=== PATIENT | male | born 1985 | race Caucasian/White ===

== ENCOUNTER 2018-12-24 22:37 | Emergency (ER) | payer SELFPAY ==
--- NOTE | 2018-12-24 23:10 | Emergency Department Record ---
History of Present Illness - General Chief Complaint: Animal Bite Stated Complaint: BAT EXPOSURE Time Seen by Provider: 12/24/18 22:43 Source: Patient Mode of Arrival: Ambulatory Limitations: No limitations - History of Present Illness Initial Comments: The patient is here due to finding a bat in his kitchen and now he is concerned he needs rabies prophylaxis. The patient has no bite ling and is unsure if he was bitten. He denies any other issues. Complaint: Possible animal exposure Onset/Timin -: Hour(s) Animal: Bat Mechanism: None known - Related Data Patient Tetanus UTD (within 5 yrs): No Home Medications Medication Instructions Recorded Confirmed Last Taken No Home Med [NO HOME MEDS] 12/24/18 12/24/18 Unknown Allergies Allergy/AdvReac Type Severity Reaction Status Date / Time sulfamethoxazole Allergy HIVES Verified 12/24/18 22:42 [From ] trimethoprim [From ] Allergy HIVES Verified 12/24/18 22:42 Travel Screening - Travel/Exposure Within Last 30 Days Have you traveled within the last 30 days?: No - Travel/Exposure Within Last Year Have you traveled outside the [place] in the last year?: No - Additonal Travel Details Have you been exposed to anyone with a communicable illness?: No - Travel Symptoms Symptom Screening: None Review of Systems Constitutional: Denies: Chills, Fever Eyes: Denies: Eye discharge ENT: Denies: Congestion Respiratory: Denies: Cough, Dyspnea Past Medical History - SOCIAL HISTORY Smoking Status: Current every day smoker Alcohol Use: Rare Drug Use: None - RESPIRATORY Hx Respiratory Disorders: No - CARDIOVASCULAR Hx Cardio Disorders: No - NEURO Hx Neuro Disorders: No - GI Hx GI Disorders: No - Hx Genitourinary Disorders: No - ENDOCRINE Hx Endocrine Disorders: No - MUSCULOSKELETAL Hx Musculoskeletal Disorders: No - PSYCH Hx Psych Problems: No - HEMATOLOGY/ONCOLOGY Hx Hematology/Oncology Disorders: No Family Medical History Any Significant Family History?: No Physical Exam - General General Appearance: Alert, Oriented x3, Cooperative, No acute distress - Head Head exam: Atraumatic, Normocephalic, Normal inspection - Eye Eye exam: Normal appearance, PERRL - Neck Neck exam: Normal inspection, Full ROM. negative: Tenderness - Respiratory Respiratory exam: Normal lung sounds bilaterally. negative: Respiratory distress - Cardiovascular Cardiovascular Exam: Regular rate, Normal rhythm, Normal heart sounds - Extremities Extremities exam: Normal inspection - Neurological Neurological exam: Alert. negative: Motor sensory deficit - Skin Skin exam: negative: Rash Course Vital Signs 12/24/18 22:42 Temperature 98.3 F Pulse Rate [ 75 Pulse Ox Probe] Respiratory 20 Rate Blood Pressure 145/89 [Left Arm] Pulse Ox 98 - Reevaluation(s) Reevaluation #1: Due to the patient's anxiety about being exposed to rabies but clearly without a bite wound I did recommend getting the rabies shots. The patient would now like to consult with the health dept. I did explain that in the event that he contracts rabies he most likely would and the patient does understand that and still would like to wait on the shots. He is to consult with the health dept and to return to the ER if he changes his mind about receive the rabies shots. 12/24/18 23:40 Disposition Disposition: Discharge Clinical Impression: Exposure to bat without known bite Disposition: Home, Self-Care Condition: (2) Stable Instructions: Animal Bite (ED) Additional Instructions: Please consult the health dept for further recommendations. Please return to the ER if you change your mind about receive the shots. Forms: Patient Portal Access Time of Disposition: 23:43 Quality - Quality Measures Quality Measures: N/A - Blood Pressure Screening View Details: Yes Does Patient Have Any of the Following: No Blood Pressure Classification: Pre-Hypertensive BP Reading Systolic Measurement: 145 Diastolic Measurement: 89 Screening for High Blood Pressure: < Pre-Hypertensive BP, F/U Documented > [[id number]] Pre-Hypertensive Follow-up Interventions: Referral to alternative/primary care provider.
== END 2018-12-24 23:47 | disposition home or self-care (01) ==
LOC: ER 22:37
DX: Z20.3 Contact with and (suspected) exposure to rabies (principal)
CPT/HCPCS: 99282